=== PATIENT | female | born 1975 | race Hispanic/Latino ===

== ENCOUNTER 2024-05-26 15:34 | Emergency (ER) | payer BC, SELFPAY ==
--- NOTE | 2024-05-26 15:37 | ED.ALLEREA ---
HPI - Allergic Reaction General Chief complaint: Allergic Reaction Stated complaint: Allergic Reaction Time Seen by Provider: 05/26/24 15:37 Source: patient Mode of arrival: ambulatory Limitations: no limitations PMFSH Comments At the time of my signature, I reviewed and agree with the nursing past medical, surgical, social, and family history. There is no relevant family history pertinent to the patient complaint. Course Course Emergency Course: Portions of this record may have been created with voice recognition software. Level of Care: Express Care Visit Vital Signs Vital signs: Vital signs reviewed Discharge Plan Discharge Follow-up/Referrals: UNKNOWN,DOCTOR [Primary Care Provider] - Quality NIHSS Nursing Documentation ED NIHSS nursing documentation: reviewed/agree
--- NOTE | 2024-05-26 15:56 | ED_ITS ---
HPI - Skin/Abscess/Foreign Bdy General Chief complaint: Skin/Abscess/Foreign Body Stated complaint: Allergic Reaction Time Seen by Provider: 05/26/24 15:37 Source: patient Mode of arrival: ambulatory Limitations: no limitations History of Present Illness HPI narrative: Padma is a 49-year-old female patient presenting to the clinic today with complaints of a painful rash to the right forehead/right baptist area. She reports that this has been going on for approximately 3 days. Began this without headache and then she developed a rash. Denies any fever, chills, body aches. Has recently moved from [place] to the local area. Complaints of pain radiating into her right upper jaw Related Data Allergies Allergy/AdvReac Type Severity Reaction Status Date / Time No Known Allergies Allergy Verified 05/26/24 16:02 Review of Systems Review of Systems: Pertinent positives per HPI. Patient denies any fever, chills, rash, headache, visual changes, dizziness, cough, runny nose, sore throat, shortness of breath, chest pain, palpitations, nausea, vomiting, diarrhea, constipation, abdominal pain, or any urinary issues. PMFSH Comments At the time of my signature, I reviewed and agree with the nursing past medical, surgical, social, and family history. There is no relevant family history pertinent to the patient complaint. Exam Narrative: General: Well-developed, well nourished, in no apparent distress Head: Normocephalic, atraumatic. Cardio: Regular rate and rhythm, s1 and s2 normal, no murmur appreciated. Resp: Clear to auscultation bilaterally, no rhonchi, rales, wheezing or rubs. Integumentary: [place], warm, and dry, red raised vesicular lesions with yellow crusting, area tender to palpation, no palpable induration. Course Course Emergency Course: Portions of this record may have been created with voice recognition software. Level of Care: Express Care Visit Vital Signs Vital signs: Vital signs reviewed MDM - Skin/Abscess/Foreign Bdy MDM Narrative Medical decision making narrative: At the time of visit patient is resting comfortably on the exam table. Patient appears to be nontoxic. Plan: I suspect patient has shingles but will cover for secondary infection as she does have some yellow crusting with redness and swelling. Prescription for mupirocin cream, acyclovir, doxycycline was sent to the pharmacy. Supportive measures were discussed with the patient and they voiced understanding discharge instructions and agrees to treatment plan. Return precautions reviewed Differential Diagnosis Differential diagnosis: Likely abscess of skin or subcutaneous tissue, viral exanthem, dermatophytosis, urticaria, herpes zoster, allergic reaction to drug, cellulitis, eczema, insect bites, impetigo and contact dermatitis Discharge Plan Discharge Clinical Impression: Herpes zoster Qualifiers: Herpes zoster complications: without complications Qualified Code(s): B02.9 - Zoster without complications Patient Disposition: Home, Self-Care Condition: Stable Instructions: Antibiotic Form, Shingles (ED) Additional Instructions: Keep area clean and dry Take acyclovir and doxycycline as prescribed Apply mupirocin cream to the affected area twice daily x7 days Follow-up with your primary care doctor 3-5 days if symptoms persist or sooner if they worsen Go to the emergency room if symptoms worsen Prescriptions: New mupirocin 2 % ointment 1 applic topical BID 7 Days Qty: 22 0RF doxycycline monohydrate 100 mg capsule 100 mg PO BID 7 Days Qty: 14 0RF acyclovir 800 mg tablet 800 mg PO Q4H 7 Days Qty: 42 0RF Rx Instructions: while awake; give 5 doses in 24 hours Follow-up/Referrals: UNKNOWN,DOCTOR [Non-Staff] - Time of Disposition: 16:03 Quality NIHSS Nursing Documentation ED NIHSS nursing documentation: reviewed/agree
== END 2024-05-26 16:15 | disposition home or self-care (01) ==
PROVIDERS: Emergency Provider Nurse Practitioner Family
DX: B02.9 Zoster without complications (principal)
CPT/HCPCS: 99213; G0463

== ENCOUNTER 2024-08-26 09:55 | Emergency (ER) | payer BC, SELFPAY ==
--- NOTE | 2024-08-26 10:06 | ED.URI ---
HPI - URI/Sore Throat General Chief Complaint: Upper Respiratory Infection Stated Complaint: dry cough,nasal congestion,wheezing Time Seen by Provider: 08/26/24 10:20 Source: patient Mode of arrival: ambulatory Limitations: no limitations History of Present Illness HPI Narrative: Padma is a 49-year-old female patient presenting to the clinic today with complaints of dry cough, nasal congestion, wheezing, feeling feverish, body aches, and chills. She reports symptoms have been going on for approximately 4 days. Denies any chest pain or shortness of breath. Feels as though she is wheezing at times. History of asthma. She does not have an albuterol inhaler. MD elicited complaint: sore throat and nasal congestion Related Data Allergies Allergy/AdvReac Type Severity Reaction Status Date / Time No Known Allergies Allergy Verified 08/26/24 10:21 Review of Systems Review of Systems: Pertinent positives per HPI. Patient denies any fever, chills, rash, headache, visual changes, dizziness, shortness of breath, chest pain, palpitations, nausea, vomiting, diarrhea, constipation, abdominal pain, or any urinary issues. PMFSH Comments At the time of my signature, I reviewed and agree with the nursing past medical, surgical, social, and family history. There is no relevant family history pertinent to the patient complaint. Exam Narrative: General: Well-developed, well nourished, in no apparent distress Head: Normocephalic, atraumatic Eyes: Pupils equally round and reactive to light bilaterally, EOM intact, sclera and conjunctive clear, no discharge, lids normal Ears: TMs intact and clear, ear canals clear, no drainage, grossly hearing normal. Nose: Nares patent, clear nasal discharge, no inflammation, no sinus tenderness. Mouth: Oral pharynx without lesions or masses, good dentition, MMM. Neck: Supple, trachea midline, no enlargement of anterior or posterior cervical nodes, no thyroid masses or goiter palpable. Cardio: Regular rate and rhythm, s1 and s2 normal, no murmur appreciated. Resp: Clear to auscultation bilaterally, no rhonchi, rales, wheezing or rubs Course Course Emergency Course: Portions of this record may have been created with voice recognition software. Level of Care: Express Care Visit Vital Signs Vital signs: Vital Signs Temperature 36.3 C L 08/26/24 10:08 Pulse Rate 81 08/26/24 10:08 Respiratory Rate 16 08/26/24 10:08 Blood Pressure 129/88 08/26/24 10:08 Pulse Oximetry 98 08/26/24 10:08 Oxygen Delivery Room Air 08/26/24 10:08 Temperature 36.3 C L 08/26/24 10:08 Pulse Rate 81 08/26/24 10:08 Respiratory Rate 16 08/26/24 10:08 Blood Pressure 129/88 08/26/24 10:08 Pulse Oximetry 98 08/26/24 10:08 Oxygen Delivery Room Air 08/26/24 10:08 Vital signs reviewed MDM - URI/Sore Throat MDM Narrative Medical decision making narrative: At the time of visit patient is resting comfortably on the exam table. Patient appears to be nontoxic. Labs: Influenza testing was positive in the clinic today. Plan: Patient has influenza A. Will send in albuterol inhaler with spacer. Supportive measures were discussed with the patient and they voiced understanding discharge instructions and agrees to treatment plan. Return precautions reviewed Differential Diagnosis Differential diagnosis: Likely upper respiratory infection, otitis media, sinusitis, viral infection, bronchitis, influenza, pharyngitis and other (COVID) Lab Data Labs: Lab Results 08/26/24 Range/Units 10:40 POC Influenza A Ag Positive (Negative) POC Influenza B Ag Negative (Negative) Discharge Plan Discharge Clinical Impression: Influenza A Patient Disposition: Home, Self-Care Condition: Stable Instructions: Antibiotic Form, Influenza (ED) Additional Instructions: Take prescription medications only as prescribed-albuterol inhaler Increase fluids and stay well hydrated Tylenol/motrin for pain/fever Flonase and OTC antihistamines as directed Vicks vapor rub to open sinuses Sinus rinses for congestion Cepacol spray, cough drops, throat lozenges, warm tea with honey/lemon, gargle salt water to soothe throat BRAT diet for diarrhea Clear liquids x 24 hours then advance as tolerated for nausea/vomiting Go to the ED if you develop a worsening in your condition- high fever not controlled by Tylenol or Motrin, dehydration, weakness, lethargy, shortness of breath, or chest pain. Follow up with your PCP in 3-5 days if symptoms persist. Patient Language: Korean Prescriptions: New albuterol sulfate 90 mcg/actuation HFA aerosol inhaler 2 puff inhalation Q4-6H PRN (Reason: shortness of breath or wheezing) 30 Days Qty: 8.5 0RF (DME) Space Chamber Spacer See Rx Instructions .Route Qty: 1 0RF Rx Instructions: As directed Follow-up/Referrals: Kulwinder,CLEMENTE Cazares [Primary Care Provider] - Stand Alone Forms: Work/School Release IP Time of Disposition: 10:30 Quality NIHSS Nursing Documentation ED NIHSS nursing documentation: reviewed/agree
[2024-08-26 10:08] VITALS: BP 129/88; PULSE 81; RESP 16; TEMP 36.3; O2SAT 98
[2024-08-26 10:42] LABS: EDINFLUASCREEN Positive (Negative); EDINFLUBSCREEN Negative (Negative)
== END 2024-08-26 10:40 | disposition home or self-care (01) ==
PROVIDERS: Emergency Provider Nurse Practitioner Family; PCP Registered Nurse
DX: J10.1 Influenza due to other identified influenza virus with other respiratory manifestations (principal); J45.909 Unspecified asthma, uncomplicated
CPT/HCPCS: 87804; 99213; G0463

== ENCOUNTER 2024-10-08 00:44 | Day surgery (SDC) | payer BC, SELFPAY ==
[2024-09-29 14:17] VITALS: BMI 34.8
--- NOTE | 2024-10-07 16:50 | WPDANESEPPF ---
Anes - Initial Pre Proc Eval Procedure: Operation Date: 10/08/24 07:30 Proposed Procedures p Screening Colonoscopy - Qamar Tan DO Date/Time: 10/07/24 16:50 Surgeon: Qamar Tan DO Pre Op Diagnosis: Screening for malignant neoplasm of colon Patient Data Age: 49 Gender: F Height: 1.57 m Weight: 86.4 kg Allergies Allergy/AdvReac Type Severity Reaction Status Date / Time No Known Allergies Allergy Verified 10/08/24 06:23 Home Medications ?Medication ?Instructions ?Recorded ?Confirmed ?Type albuterol sulfate 90 mcg/actuation 2 puff inhalation Q4-6H PRN 08/26/24 09/29/24 Rx aerosol inhaler shortness of breath or wheezing 30 days #8.5 grams inhalational spacing device (Space #1 ea 08/26/24 Rx Chamber) Patient hx anesthesia problems: none Family hx anesthesia problems: none Results Review: All pre-operative results and documents have been reviewed as part of the pre-operative evaluation. [facility] Past Medical History Medical History (Updated 10/07/24 @ 16:50 by Héctor Stroud DO) Asthma Social History Social History Smoking packs per day: 1 Smoking cigarettes per day: 20.0 Years smoked: 10 Smoking pack-years: 10.00 Smoking status: Former smoker Tobacco type: cigarettes Living arrangements: with family Spiritual care concerns: No Anes - Eval Final PreProcedure Day of Procedure 10/07/24 16:50 Patient weight: obese Heart: regular rate and rhythm Lungs: clear to auscultation Airway: Mallampati scale class II Neurological: alert and oriented Last oral intake: >/= 8 hours ASA classification: II Emergent: no Anesthetic plan: proceed Anesthesia type and monitoring: general GIVS and standard monitoring Results Review: All pre-operative results and documents have been reviewed as part of the pre-operative evaluation. Informed Consent: The patient's anesthetic plan and its attendant risks and benefits were discussed with the patient/family/POA. Questions were solicited and answers provided to the satisfaction of the patient/family/POA.
--- OUTSIDE RECORDS SUMMARY | 2024-10-08 00:47 | XMS_ITS | Clinical Summary ---
Author Organization [facility] [place] Address [address] [place] [address] Care Team Providers Care Asp Web Developer Name Role Phone Unavailable Primary Care Provider Unavailabl e Medications fluconazole (DIFLUCAN) 150 mg tablet TAKE 1 TABLET BY MOUTH ONCE FOR 1 DOSE. TAKE FOR YEAST INFECTION. 08/09/2022 Active Active Problems No known active problems Social History Tobacco Use Types Packs/Day Years Used Date Smoking Tobacco: Former Cigarettes 1 12 0 07/01/1992 - 07/01/2004 Smokeless Tobacco: Never Tobacco Cessation:Counseling Given: Not Answered Alcohol Use Standard Drinks/Week Comments Yes 3 (1 standard drink = 0.6 oz pur e alcohol) Comments No Sex and Gender Information Value Date Recorded Sex Assigned at Not on file Legal Sex Female 4:24 PM PST Gender Identity Not on file Sexual Orientation Not on file Last Filed Vital Signs Vital Sign Reading Time Taken Comments Blood Pressure 118/80 01/02/2022 3:02 PM PDT Pulse 86 01/02/2022 3:02 PM PDT Temperature 36.1 C (97 F) 01/02/2022 3:02 PM PDT Respiratory Rate - - Oxygen Saturation - - Inhaled Oxygen Concentration - - Weight - - Height - - Body Mass Index - - Plan of Treatment Health Maintenance Due Date Last Done Comments Dental Oral Exam 01/15/2023 07/17/2022, 10/2021, 06/13/2021 Dental Prophylaxis 01/15/2023 07/17/2022, 01/02/2022 Dental X-Ray: Bitewings 01/15/2023 07/17/2022 Dental X-Ray: Full Mouth 06/14/2024 06/13/2021 Dental X-Ray: Panoramic 10/04/2025 10/03/2022, 06/13 Meningococcal B Vaccine Aged Out No l onger eligible based on patient's age to complete this topic Procedures Procedure Name Priority Date/Time Associated Diagnosis Comments PROPHYLAXIS - ADULT Routine 07/17/2022 4 :00 PM PST PERIODIC ORAL EVALUATION - ESTABLISHED PATIENT Routine 07/17/2022 4:00 PM PST PANORAMIC RADIOGRAPHIC IMAGE Routine 06/13/2021 3:30 PM PST INTRAORAL - COMPREHENSIVE SERIES OF RADIOGRAPHIC IMAGES Routine 06/13/2021 3:30 PM PST from Last 3 Months or Most Recently Relevant to Health Maintenance Insurance [employer] PPO
--- OUTSIDE RECORDS SUMMARY | 2024-10-08 00:47 | XMS_ITS | Encounter Summary ---
Author Organization [facility] [place] Address [address] [place] [address] Care Team Providers Care Architecture Instructor Name Role Phone Unavailable Primary Care Provider Unavailabl e Encounter Details Date Type Department Care Team (Latest Contact Info) Description 06/13/2021 Abstract Social History Tobacco Use Types Packs/Day Years Used Date Smoking Tobacco: Never Assessed Comments No Sex and Gender Information Value Date Recorded Sex Assigned at Not on file Legal Sex Female 4:24 PM PST Gender Identity Not on file Sexual Orientation Not on file COVID-19 Exposure Response Date Recorded In the last month, have you been in contact with someone who was confirmed or suspected to have Coronavirus / COVID-19? No / Unsure 06/16/2021 2:15 PM PST documented as of this encounter Plan of Treatment Not on file documented as of this encounter Visit Diagnoses Not on filedocumented in this encounter
--- OUTSIDE RECORDS SUMMARY | 2024-10-08 00:47 | XMS_ITS | Encounter Summary ---
Author Organization [facility] [place] Address [address] [place] [address] Care Team Providers Care Qc Analyst Name Role Phone Unavailable Primary Care Provider Unavailabl e Prior Encounters Date Type Department Care Team Description 10/02/2022 10:00 AM PDT Office Visit [facility] [address] [facility], [place] [address] [place] [address] Mary Scott DDS 07/17/2022 4:00 PM PST Office Visit [facility] [address] [facility] [place] [address] [place] [address] Divine Box DDS 01/02/2022 Travel 01/02/2022 3:00 PM PDT Office Visit [facility] [address] [facility], [place] [address] [place] [address] Divine Box DDS 07/18/2021 Travel 07/18/2021 3:00 PM PST Office Visit [facility] [address] [facility], [place] [address] [place] [address] Divine Box DDS 06/16/2021 Travel 06/16/2021 2:30 PM PST Office Visit [facility] [address] [place] [facility], [place] [address] [place] [address] Divine Box DDS 06/13/2021 Abstract 06/13/2021 Travel 06/13/2021 3:30 PM PST Office Visit [facility] [address] [place] [facility], [place] [address] [place] [address] Divine Box DDS Last Filed Vital Signs Vital Sign Reading Time Taken Comments Blood Pressure 118/80 01/02/2022 3:02 PM PDT Pulse 86 01/02/2022 3:02 PM PDT Temperature 36.1 C (97 F) 01/02/2022 3:02 PM PDT Respiratory Rate - - Oxygen Saturation - - Inhaled Oxygen Concentration - - Weight - - Height - - Body Mass Index - - Plan of Treatment Not on file Procedures Procedure Name Priority Date/Time Associated Diagnosis Comments NC X-RAY Routine 10/02/2022 10:00 AM PDT 14 CERECFIRED CROWNPOST Routine 10/03/19 10:00 AM PDT 14 CEMENT CROWN Routine 10/02/2022 10:00 AM PDT ORAL HYGIENE INSTRUCTIONS Routine 2022 4:00 PM PST PROPHYLAXIS - ADULT Routine 07/17/2022 4 :00 PM PST INTRAORAL PHOTO Routine 07/17/2022 4:00 PM PST INTRAORAL PHOTO Routine 07/17/2022 4:00 PM PST INTRAORAL PHOTO Routine 07/17/2022 4:00 PM PST INTRAORAL PHOTO Routine 07/17/2022 4:00 PM PST BITEWINGS - FOUR RADIOGRAPHIC IMAGES Routine 07/17/2022 4:00 PM PST ADDITIONAL X-RAY Routine 07/17/2022 4:00 PM PST PERIODIC ORAL EVALUATION - ESTABLISHED PATIENT Routine 07/17/2022 4:00 PM PST SINGLE X-RAY Routine 07/17/2022 4:00 PM PST ORAL HYGIENE INSTRUCTIONS Routine 2021 3:00 PM PDT PERIODIC ORAL EVALUATION - ESTABLISHED PATIENT Routine 01/02/2022 3:00 PM PDT PROPHYLAXIS - ADULT Routine 01/02/2022 3 :00 PM PDT NC X-RAY Routine 07/18/2021 3:00 PM PST 29 SEAT ONLAY Routine 07/18/2021 3:00 PM PST 29 MOL CEREC ONLAY 3 SURF Routine 2021 3:00 PM PST NC X-RAY Routine 07/18/2021 3:00 PM PST 5 SEAT ONLAY Routine 07/18/2021 3:00 PM PST 5 MODL CEREC ONLAY 4 SURF Routine 2021 3:00 PM PST 4 O RESIN-BASED COMPOSITE - ONE SURFACE, POSTERIOR Routine 07/18/2021 3:00 PM PST 3 CEMENT CROWN Routine 07/18/2021 3:00 PM PST 3 CORE BUILDUP, INCLUDING ANY PINS WHEN REQUIRED Routine 07/18/2021 3:00 PM PST 3 CERECFIRED CROWNPOST Routine 3:00 PM PST UL ANTIBACT IRR/QUAD Routine 06/16/2021 2:30 PM PST UR ANTIBACT IRR/QUAD Routine 06/16/2021 2:30 PM PST LL ANTIBACT IRR/QUAD Routine 06/16/2021 2:30 PM PST LR ANTIBACT IRR/QUAD Routine 06/16/2021 2:30 PM PST EBONI DECON Routine 06/16/2021 2:30 PM PST TOPICAL APPLICATION OF FLUORIDE VARNISH Routine 06/16/2021 2:30 PM PST SCALING IN PRESENCE OF GENERALIZED MODERATE OR SEVERE GINGIVAL INFLAMMATION Routine 06/16/2021 2:30 PM PST ORAL HYGIENE INSTRUCTIONS Routine 2020 2:30 PM PST BITEWINGS - FOUR RADIOGRAPHIC IMAGES Routine 06/13/2021 3:30 PM PST INTRAORAL PHOTO Routine 06/13/2021 3:30 PM PST INTRAORAL PHOTO Routine 06/13/2021 3:30 PM PST INTRAORAL PHOTO Routine 06/13/2021 3:30 PM PST INTRAORAL PHOTO Routine 06/13/2021 3:30 PM PST PANORAMIC RADIOGRAPHIC IMAGE Routine 06/13/2021 3:30 PM PST INTRAORAL - COMPREHENSIVE SERIES OF RADIOGRAPHIC IMAGES Routine 06/13/2021 3:30 PM PST COMPREHENSIVE ORAL EVALUATION - NEW OR ESTABLISHED PATIENT Routine 06/13/2021 3:30 PM PST 13 MO COMPOSITE FILLING Routine 06/13/20 12:00 AM PST 12 DO COMPOSITE FILLING Routine 06/13/20 12:00 AM PST 5 O AMALGAM FILLING Routine 06/13/2021 1 2:00 AM PST 29 O AMALGAM FILLING Routine 06/13/2021 12:00 AM PST 31 RUTH ANN COMPOSITE FILLING Routine 021 12:00 AM PST 30 RUTH ANN COMPOSITE FILLING Routine 021 12:00 AM PST 18 MOBL COMPOSITE FILLING Routine 2020 12:00 AM PST 14 DO COMPOSITE FILLING Routine 06/13/20 21 12:00 AM PST 15 ROOT CANAL Routine 06/13/2021 12:00 AM PST 15 PFM CROWN Routine 06/13/2021 12:00 AM PST 19 CEREC CROWN Routine 06/13/2021 12:00 AM PST 2 PFM CROWN Routine 06/13/2021 12:00 AM PST 3 CEREC CROWN Routine 06/13/2021 12:00 AM PST Visit Diagnoses Not on file Insurance [address] [place] [address] [facility]
--- OUTSIDE RECORDS SUMMARY | 2024-10-08 00:47 | XMS_ITS | Clinical Summary ---
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 Gender Identity Not on file Sexual Orientation Not on file Plan of Treatment Health Maintenance Due Date Last Done Comments Cervical Cancer Screening Pa p Smear (Age 30 to 64) Every 3 Years 1977 Colorectal Cancer Screening Colonoscopy (10 Years) 1977 Annual Physical 02/28/1980 Hepatitis C 1995 DTaP, Tdap and Td Vaccines ( 1 - Tdap) 02/28/1996 Hepatitis B Vaccines (1 of 3 - 19+ 3-dose series) 02/28/1996 Cervical Cancer Screening Pa p with HPV Testing (Age 30 to 64) Every 5 Years 2007 Cervical Cancer Screening with HPV 2007 Mammogram Screening 2017 COVID-19 Vaccine (2023-2 5 season) 2024 Meningococcal B Vaccine Aged Out No l onger eligible based on patient's age to complete this topic Meningococcal Vaccine Aged Out No sylvie sherin eligible based on patient's age to complete this topic Pneumococcal Vaccine: Pediat rics (0 to 5 Years) and At-Risk Patients (6 to 64 Years) Aged Out No longer eligible b ased on patient's age to complete this topic RSV Immunizations Under 20 Months Aged Out No longer eligible based on patient's age to complete this topic
[2024-10-08 06:23] VITALS: BP 143/82; PULSE 66; RESP 18; TEMP 36.1; O2SAT 100
[2024-10-08 06:27] LABS: BEDSIDEPREGUCG Negative (Negative)
[2024-10-08] MEDS: LACTATED RINGERS 1,000 ML 150 ML IV CONT (06:36)
--- NOTE | 2024-10-08 07:22 | PM.IMHP ---
H&P: HPI History of Present Illness Date/Time: 10/08/24 07:22 Chief Complaint: Screening for colorectal cancer Narrative: This is a 49-year-old woman who presents for colonoscopy. She had a colonoscopy about 10 years ago for rectal bleeding but that was normal. She is adopted and does not know her family history. She denies any melena but does state she has some occasional bright red blood in her stools. Review of Systems Review of Systems: All systems reviewed & are unremarkable except as noted in HPI and below Constitutional: Constitutional: Denies chills, Denies fever(s), Denies headache(s) and Denies weight loss Eyes: Eyes: Denies change in vision ENT: Denies dizziness, Denies headache(s), Denies neck mass and Denies throat swelling Cardiovascular: Cardiovascular: Denies chest pain, Denies lightheadedness and Denies dyspnea Respiratory: Respiratory: Denies cough, Denies dyspnea and Denies wheezing Gastrointestinal: Gastrointestinal: Denies abdominal pain, Denies change in bowel habits, Denies nausea and Denies vomiting Genitourinary: Genitourinary: Denies hematuria and Denies dysuria Musculoskeletal: Musculoskeletal: Reports as per HPI Integumentary/Breasts: Skin/Breast: Reports as per HPI Neurologic: Denies dizziness and Denies headache(s) Allergic/Immunologic: Allergic/Immunologic: Denies throat swelling and Denies wheezing [facility] Past Medical History Medical History (Updated 10/08/24 @ 07:23 by Qamar Tan DO) Asthma Social History Social History Smoking packs per day: 1 Smoking cigarettes per day: 20.0 Years smoked: 10 Smoking pack-years: 10.00 Smoking status: Former smoker Tobacco type: cigarettes Living arrangements: with family Spiritual care concerns: No Meds Home Medications and Allergies Home Medications ?Medication ?Instructions ?Recorded ?Confirmed ?Type albuterol sulfate 90 mcg/actuation 2 puff inhalation Q4-6H PRN 08/26/24 09/29/24 Rx aerosol inhaler shortness of breath or wheezing 30 days #8.5 grams inhalational spacing device (Space #1 ea 08/26/24 Rx Chamber) Allergies Allergy/AdvReac Type Severity Reaction Status Date / Time No Known Allergies Allergy Verified 10/08/24 06:23 Vital Signs Vital Signs - 24 hr 10/08/24 06:23 Temperature 97 F L Pulse Rate 66 Respiratory Rate 18 Blood Pressure 143/82 H Pulse Oximetry 100 Oxygen Delivery Room Air Exam Const: General: no acute distress and alert Orientation/consciousness: patient oriented x3 HENMT: Head: normocephalic and atraumatic Ears: hearing grossly normal bilaterally Face/Nose/Sinus: Normal nares present Mouth: Yes Normal oral and palatal mucosa present Eyes: Periorbital: periorbital findings normal Sclera: sclerae normal EOM: EOMs intact bilaterally Neck: Neck: normal visual inspection, no lymphadenopathy and trachea midline Chest: Chest palpation & inspection: normal inspection of the chest Resp: Effort & Inspection: normal respiratory effort Auscultation: clear to auscultation bilaterally Cardio: Jugular venous distension: no JVD Rate: regular rate Rhythm: regular rhythm Heart sounds: S1 normal heart sound present and S2 normal heart sound present Peripheral pulses: Peripheral pulses 2+ throughout GI: Inspection: normal to inspection GI Palp: Yes Soft to palpation, No Tenderness to palpation present (GI), No Guarding due to palpation present (GI) and No Rebound tenderness present Percussion: Yes normal to percussion Auscultation: normal bowel sounds : General: Yes no CVA tenderness Back/Spine/Pelvis: Back: no CVA tenderness Neuro: General: patient oriented x3, no focal motor deficits and CN's II-XI intact bilaterally Cognition (Neuro): normal cognition Speech: normal speech Motor exam (neuro): 5/5 motor strength present throughout Extrem: General: capillary refill normal and no clubbing, cyanosis or edema Assessment and Plan Assessment and plan (1) Screening for colorectal cancer: Code(s): Z12.11 - Encounter for screening for malignant neoplasm of colon; Z12.12 - Encounter for screening for malignant neoplasm of rectum Status: Acute Assessment and Plan: I have recommended colonoscopy. I have discussed the procedure, risks, benefits, and alternatives. Questions were answered. Patient is agreeable to proceed.
[2024-10-08 07:48] VITALS: BP 110/74; PULSE 68; RESP 18; O2SAT 100
[2024-10-08 07:58] VITALS: BP 131/89; PULSE 61; RESP 24; O2SAT 100
[2024-10-08 08:08] VITALS: BP 136/84; PULSE 60; RESP 15; O2SAT 100
== END 2024-10-08 08:18 | disposition home or self-care (01) ==
PROVIDERS: Anesthesiology; PCP Registered Nurse; Visit Provider Surgery
PROC: 0DJD8ZZ Inspection of Lower Intestinal Tract, Via Natural or Artificial Opening Endoscopic (ICD-10-PCS; CPT 45378; principal; 2024-10-08 07:30)
DX: Z12.11 Encounter for screening for malignant neoplasm of colon (principal); K57.30 Diverticulosis of large intestine without perforation or abscess without bleeding; J45.909 Unspecified asthma, uncomplicated; E66.9 Obesity, unspecified; Z68.34 Body mass index [BMI] 34.0-34.9, adult; Z79.51 Long term (current) use of inhaled steroids; Z87.891 Personal history of nicotine dependence
CPT/HCPCS: 45378; J2704; J7120

== ENCOUNTER 2025-03-19 12:44 | Outpatient (CLI) | payer BC, SELFPAY ==
--- NOTE | ~2025-03-19 | MM_ITS ---
EXAMINATION: MM screening guadalupe BI w sadaf HISTORY: Screening TECHNIQUE: Craniocaudal and mediolateral oblique 3-D tomosynthesis images were obtained and synthetic 2-D images were generated. CAD analysis was submitted and interpreted. COMPARISON: None provided BREAST PARENCHYMAL COMPOSITION: There are scattered areas of fibroglandular density. FINDINGS: There is no evidence of suspicious mass, calcification, or architectural distortion to suggest malignancy in either breast. IMPRESSION: 1. No mammographic evidence of malignancy. 2. Recommend routine screening mammography in one year. BI-RADS Category 1: Negative Reviewed, dictated and finalized at location B.
--- OUTSIDE RECORDS SUMMARY | 2025-03-19 12:48 | XMS_ITS | Encounter Summary ---
Author Organization [facility] Health Address [address] [place] [address] Care Team Providers Care Electric Distribution Checker Name Role Phone Unavailable Primary Care Provider Unavailabl e Prior Encounters Date Type Department Care Team Description 10/02/2022 10:00 AM PDT Office Visit [facility] [address], [place] [address] [place] [address] Mary Scott DDS 07/17/2022 4:00 PM PST Office Visit [facility] [address] [facility], [place] [address] [place] [address] Divine Box DDS 01/02/2022 Travel 01/02/2022 3:00 PM PDT Office Visit [facility] [address] [facility], [place] [address] [place] [address] Divine Box DDS 07/18/2021 Travel 07/18/2021 3:00 PM PST Office Visit [facility] [address] [facility], [place] [address] [place] [address] Divine Box DDS 06/16/2021 Travel 06/16/2021 2:30 PM PST Office Visit [facility] [address] [facility], [place] [address] [place] [address] Divine Box DDS 06/13/2021 Abstract 06/13/2021 Travel 06/13/2021 3:30 PM PST Office Visit [facility] [address] [facility], [place] [address] [place] [address] Divine Box DDS Last Filed Vital Signs [...] PST 31 [facility] [employer] Routine 12:00 AM PST 30 [facility] [employer] Routine 12:00 AM PST 18 [facility] COMPOSITE FILLING [...] Diagnoses Not on file Insurance [id number] [place] [address] [facility] [place]
--- OUTSIDE RECORDS SUMMARY | 2025-03-19 12:48 | XMS_ITS | Encounter Summary ---
Author Organization [facility] Health Address [address] [place] [address] Care Team Providers Care Clay Modeler Name Role Phone Unavailable Primary Care Provider [...]
--- OUTSIDE RECORDS SUMMARY | 2025-03-19 12:48 | XMS_ITS | Clinical Summary ---
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
--- OUTSIDE RECORDS SUMMARY | 2025-03-19 12:48 | XMS_ITS | Clinical Summary ---
Author Organization [facility] Health Address [address] [place] [address] Care Team Providers Care Horse Race Timer Name Role Phone Unavailable Primary Care Provider [...] Done Comments Dental Oral Exam 01/15/2023 07/17/2022, 01/02/2022, 06/13/2021 Dental Prophylaxis 01/15/2023 07/17/2022, 01/02/2022 Dental X-Ray: Bitewings 01/15/2023 07/17/2022 Dental X-Ray: Full Mouth 06/14/2024 06/13/2021 Dental X-Ray: Panoramic 10/04/2025 10/03/2022, 06/13 Procedures Procedure Name Priority Date/Time Associated Diagnosis Comments PROPHYLAXIS - ADULT Routine 07/17/2022 4 :00 PM PST PERIODIC ORAL EVALUATION - ESTABLISHED PATIENT Routine 07/17/2022 4:00 PM PST PANORAMIC RADIOGRAPHIC IMAGE Routine 06/13/2021 3:30 PM PST INTRAORAL - COMPREHENSIVE SERIES OF RADIOGRAPHIC IMAGES Routine 06/13/2021 3:30 PM PST from Last 3 Months or Most Recently Relevant to Health Maintenance Insurance [employer]
== END 2025-03-19 12:45 | disposition home or self-care (01) ==
PROVIDERS: PCP Registered Nurse; Visit Provider Family Medicine
DX: Z12.31 Encounter for screening mammogram for malignant neoplasm of breast (principal)
CPT/HCPCS: 77063; 77067